=== PATIENT | male | born 1960 | race Caucasian/White ===

== ENCOUNTER 2024-06-06 20:41 | Emergency (ER) | payer OTHER, SELFPAY ==
[2024-06-06 20:47] VITALS: BP 177/98
--- NOTE | 2024-06-06 21:09 | ED.GENMED ---
History of Present Illness
General
Chief Complaint: Eye Problems
Source: patient
Exam Limitations: none
Time Seen by Provider: 06/06/24 20:55
Nursing documentation reviewed up to this point in time: agreed with
History of Present Illness
History of Present Illness:
This is a pleasant 63-year-old male that presents with right eye injury. He was cutting branches and one of them hit him in his right eye. He is very confident that he has a corneal abrasion. He denies any particles going into his eye. The full
branch hit him. This happened this afternoon. Unsure of last tetanus status. He did take a drop of moxifloxacin eyedrops that he had leftover from an old eye injury. He reported no relief. Denies fever, chills, nausea or vomiting. Reports no
chest pain or shortness of breath. Reports no other head injury.
Past History
Past History
ED Past Medical History: None; Negative Asthma, HTN, Hypercholesterolemia, IDDM or NIDDM
ED Past Surgical History: None
Social History
Tobacco: Non-smoker
Alcohol: Occasional
Personal:
Living: with family
Employment: Employed
Review of Systems
Review of Systems
Allergies reviewed?: Yes
All Other Systems: ROS reviewed and negative except as documented in HPI and ROS
Constitutional: Reports no symptoms
EENT: Reports tearing and other (Eye pain)
Respiratory: Reports no symptoms
Cardiac: Reports no symptoms
ABD/GI: Reports no symptoms
: Reports no symptoms
Musculoskeletal: Reports no symptoms
Skin: Reports no symptoms
Neurological: Reports no symptoms
Endocrine: Reports no symptoms
Hematologic/Lymphatic: Reports no symptoms
Psychiatric: Reports no symptoms
Phy Exam
Physical Exam
Physical Exam:
Physical Exam
Vital signs and allergy list reviewed and agreed with.
GENERAL: Alert , in minimal apparent distress
EYE: pupils equal, EOMI, anicteric corneal abrasion
NECK: Supple, no significant adenopathy. Trachea midline
ENT: Oropharynx is clear, mmm.
CARDIAC: Regular rate and rhythm . No M/R/G
LUNGS: Clear breath sounds bilaterally, no acute respiratory distress, no wheezes/rales/rhonchi
NEUROLOGICAL: Alert and oriented, no focal neuro deficits
SKIN: Warm and dry, skin intact.
MUSCULOSKELETAL: No edema, well perfused. Moves all 4 extremities
PSYCH: Normal and appropriate interaction.
Eye Exam
Eye Exam: PERRL and EOMI
Eye Exam General: PERRL: bilateral and EOM intact: bilateral
Pupil Exam: Bilateral: round and reactive
Conjunctival Changes: right: watery discharge
Cornea Exam: abrasion: Right
Type of Exam: fluorescein
Tonometry: Side: Right (Corneal abrasion center of eye)
Pulmonary Exam
Pulmonary Exam: lungs clear and no respiratory distress
Musculoskeletal Exam
Musculoskeletal Exam: full ROM, no edema and neuro vasc intact
Skin Exam
Skin Exam: normal color and warm/dry
Psychiatric Exam
Psychiatric Exam: normal mood/affect
Course
Orders/Labs/Results
Orders:
Orders
06/06/24 21:08
Gentamicin [Genoptic 0.3% Eye Drops] See Dose Instructions OPHTH NOW STA
Tetanus/Diphth/Acelpertussis [Adacel] 0.5 ml IM .ONCE ONE
06/06/24 21:43
Tetracaine HCl [Tetracaine 0.5% Ophthalmic Solution] 1 drop .ROUTE .STK-MED ONE
Vital Signs
Initial and Last Documented VS:
Initial Vital Signs
Temp Pulse Resp BP Pulse Ox
97.7 F 76 16 177/98 97
06/06/24 20:47 06/06/24 20:47 06/06/24 20:47 06/06/24 20:47 06/06/24 20:47
Last Documented Vital Signs
Temp Pulse Resp BP Pulse Ox
97.7 F 76 16 177/98 97
06/06/24 20:47 06/06/24 20:47 06/06/24 20:47 06/06/24 20:47 06/06/24 20:47
*Critical Care Note
Total Time (30-74mins, 75-104mins- exclusive of procedures): Not Applicable
ED Attending Note
-
Portions of this chart may have been created with voice recognition software.� Occasional wrong word or��sound alike� substitutions may have occurred due to the inherent limitations of voice recognition software.
Discharge Plan
Departure
Patient Disposition: Home (Routine Discharge)
Date of Disposition: 06/06/24
Time of Disposition: 21:11
Patient with high blood pressure during this ER visit?: Yes
Discharge Problem:
Abrasion, corneal
Instructions: Corneal Abrasion (DC), How to Use Eye Drops
Prescriptions:
No Action
sulfamethoxazole-trimethoprim 800 MG/160 MG tablet
1 tab PO BID Qty: 14 0RF
amoxicillin-pot clavulanate [Augmentin] 1 EACH tablet
1 ea PO BID Qty: 14 0RF
sulfamethoxazole-trimethoprim 1 TABLET tablet
1 tab PO BID Qty: 20 0RF
cephalexin 500 MG capsule
500 mg PO QID Qty: 40 0RF
Referrals:
Kaden Choudhary MD [Active] -
Activity Restrictions/Additional Instructions:
Please use 1 drop in the right eye every 6 hours while awake for the next 4 days. Please follow-up with your eye doctor as discussed.
It was a pleasure meeting you and taking part in your care. We hope for your continued healing and wellness.
Please read discharge instructions in their entirety. However, they are for general education and may not describe your exact diagnosis at discharge. Information on your ER visit and medical conditions were discussed with you along with appropriate
follow up information...
If indicated, please take your medications as instructed and indicated on discharge paperwork.
Please schedule a follow up appointment as directed. Call to schedule an appointment
Please return to the emergency department with ANY change in, persisting, or worsening of symptoms. If any of your symptoms do not improve, or persist, or become more severe within 6-12 hours, please return to the emergency department for further
care.
Please return to the emergency department if you develop a headache, neck pain/stiffness, fever greater than 100.4F, chest pain, shortness of breath, persistent nausea, vomiting, slurred speech, difficulty walking, numbness/tingling, weakness, signs
of infection or any other symptoms that are worrisome to you.
If you have any questions or concerns please do not hesitate to call the Hospital at or E-mail me directly at [email or web address]
Interventions
Interventions:
*Risk Screen - Suicide Last Done: 06/06/24 20:47
*General Assessment Last Done: 06/06/24 20:47
*Neglect/Abuse Screening Last Done: 06/06/24 20:47
ED- Fall Risk Assessment Last Done: 06/06/24 21:26
*ED COVID-19 Vaccine History Last Done: 06/06/24 21:25
*Nursing Disposition Last Done: 06/06/24 21:28
Discharge Date and Time
Discharge Date/Time: 06/06/24 21:38
Print Language: BAHRAINI
[2024-06-06] MEDS: ADACEL 0.5 ML IM (21:19)
[2024-06-06] MEDS: GENOPTIC 0.3% EYE DROPS 1 DROP OPHTH (21:21)
== END 2024-06-06 21:38 | disposition home or self-care (01) ==
LOC: EMR 20:41
PROVIDERS: EMERGENCY PHYSICIAN Student in an Organized Health Care Education/Training Program; FAMILY PHYSICIAN Internal Medicine
DX: S05.01XA Injury of conjunctiva and corneal abrasion without foreign body, right eye, initial encounter (principal); X58.XXXA Exposure to other specified factors, initial encounter; Z23 Encounter for immunization
CPT/HCPCS: 99282; 90471; 90715

== ENCOUNTER 2024-08-23 06:18 | Day surgery (SDC) | payer OTHER, SELFPAY | END 2024-08-23 11:49 | disposition home or self-care (01) | LOC: GI 06:18 | PROVIDERS: ATTENDING PHYSICIAN Internal Medicine Gastroenterology | DX: Z12.11 Encounter for screening for malignant neoplasm of colon (principal); D12.0 Benign neoplasm of cecum; D12.5 Benign neoplasm of sigmoid colon; D12.8 Benign neoplasm of rectum; K57.30 Diverticulosis of large intestine without perforation or abscess without bleeding; K64.8 Other hemorrhoids | CPT/HCPCS: 45385; 45380; 88305 ==

== ENCOUNTER → 2024-08-27 13:42 | Outpatient (REF) | payer OTHER, SELFPAY | LOC: RAD 13:42 | PROVIDERS: ATTENDING PHYSICIAN Nurse Practitioner Adult Health | DX: M25.561 Pain in right knee (principal) | CPT/HCPCS: 73564 ==

== ENCOUNTER → 2024-09-16 15:43 | Outpatient (REF) | payer OTHER, SELFPAY | LOC: RAD 15:43 | PROVIDERS: ATTENDING PHYSICIAN Orthopaedic Surgery; FAMILY PHYSICIAN Internal Medicine | DX: S05.50XA Penetrating wound with foreign body of unspecified eyeball, initial encounter (principal) | CPT/HCPCS: 70030 ==

== ENCOUNTER → 2025-04-18 07:38 | Outpatient (REF) | payer OTHER, SELFPAY | LOC: MRI 3T 07:38 | PROVIDERS: ATTENDING PHYSICIAN Specialist; FAMILY PHYSICIAN Internal Medicine | DX: R97.20 Elevated prostate specific antigen [PSA] (principal); Z80.42 Family history of malignant neoplasm of prostate | CPT/HCPCS: 72197; A9575 ==

== ENCOUNTER → 2025-08-08 11:46 | Outpatient (REF) | payer OTHER, SELFPAY | LOC: RAD 11:46 | PROVIDERS: ATTENDING PHYSICIAN Specialist | DX: N21.0 Calculus in bladder (principal) | CPT/HCPCS: 74018 ==